=== PATIENT | female | born 1970 | race Caucasian/White ===

== ENCOUNTER 2022-05-03 07:53 | Emergency (ER) | payer MEDICAID ==
[2022-05-03] MEDS ORDERED: SODIUM CHLORIDE 0.9% 1,000 ML IV STA (08:09)
[2022-05-03] MEDS ORDERED: KETOROLAC 15 MG/ML 1 ML VIAL IVP STA (08:09)
--- NOTE | 2022-05-03 08:19 | ED ---
Female Urogenital HPI - General Chief complaint: Vaginal Bleeding Stated complaint: FEMALE ISSUES - PAIN Time Seen by Provider: 05/03/22 07:59 Source: patient, family, RN notes reviewed Mode of arrival: ambulatory Limitations: no limitations - History of Present Illness Initial comments: This is a 52-year-old female who presents to the emergency department for vaginal bleeding. She states that she has been having intermittent abdominal cramping for about a week, and starting 2 days ago, she started to have vaginal bleeding. This started light and has increased in frequency and intensity. States that she is now passing small clots. The cramping has now increased as well. Going through 3-4 pads a day. States that the pain is in the right lower quadrant with radiation into the back. The pain is making her nauseous, however she has not thrown up. She is unable to sleep at night due to the pain and states that she cannot get comfortable. Denies any history of similar symptoms in the past. Unsure if she is postmenopausal. States that she believes that she has gone a year without a period, however she feels like she has now been having a period every month. Denies any problems with painful periods in the past. She just moved to the area about a year ago and does not currently have an [facility]ESS OPERATOR. She is also unable to get in with her primary care provider until next month. Denies any fevers, chills, sore throat, cough, dyspnea, chest pain, palpitations, vomiting, diarrhea, back pain, or headaches. MD Complaint: vaginal bleeding, pelvic pain Onset/Timin -: days(s) Patient : No - Related Data Previous Rx's Medication Instructions Recorded HYDROcodone/APAP 5-325MG [Lakewood 1 tab PO Q6HR PRN 3 Days #12 tab 05/03/22 5-325] Ondansetron Odt [Zofran Odt] 4 mg PO Q8HR PRN #15 tab 05/03/22 Allergies Allergy/AdvReac Type Severity Reaction Status Date / Time No Known Allergies Allergy Verified 05/03/22 07:58 Review of Systems ROS Statement: Those systems with pertinent positive or pertinent negative responses have been documented in the HPI. ROS Other: All systems not noted in ROS Statement are negative. Past Medical History Past Medical History: No Reported History History of Any Multi-Drug Resistant Organisms: None Reported Past Surgical History: No Surgical Hx Reported Past Psychological History: No Psychological Hx Reported Smoking Status: Never smoker Past Alcohol Use History: Occasional Past Drug Use History: None Reported General Exam Limitations: no limitations General appearance: alert, in distress Head exam: Present: atraumatic, normocephalic, normal inspection Respiratory exam: Present: normal lung sounds bilaterally. Absent: respiratory distress, wheezes, rales, rhonchi, stridor Cardiovascular Exam: Present: regular rate, normal rhythm, normal heart sounds. Absent: systolic murmur, diastolic murmur, rubs, gallop, clicks GI/Abdominal exam: Present: soft, tenderness (RLQ), normal bowel sounds. Absent: distended Neurological exam: Present: alert, oriented X3, CN II-XII intact Psychiatric exam: Present: normal affect, normal mood Skin exam: Present: warm, dry, intact, normal color. Absent: rash Course Vital Signs 05/03/22 05/03/22 05/03/22 07:56 10:20 13:04 Temperature 98.5 F 98.2 F Pulse Rate 62 82 90 Respiratory 20 18 16 Rate Blood Pressure 128/61 104/80 124/82 O2 Sat by Pulse 99 98 95 Oximetry Medical Decision Making - Medical Decision Making This is a 52-year-old female who presents to the emergency department for pelvic pain and vaginal bleeding. Was pt. sent in by a medical professional or institution? @ -No Did you speak to anyone other than the patient for history? @ -No Did you review nursing and triage notes? @ -Yes, and I agree, it is accurate with regards to the patient's symptoms. Were old charts reviewed? @ -No Differential Diagnosis? @ -Differential Vaginal Bleeding: Spontaneous , threatened , molar , ectopic , incompetent cervix, placenta previa, uterine rupture, dysfunctional uterine bl eeding, hemorrhage, uterine fibroids, malignancy, coagulopathy, PID, cervicitis, adenomyosis, vaginal trauma, this is not meant to be an all- inclusive list. -Differential Abdominal Pain Women: Appendicitis, Cholecystitis, diverticulosis, ischemic bowel, pancreatitis, hepatitis, UTI, gastroenteritis, AAA, incarcerated hernia, bowel obstruction, constipation, inflammatory bowel, hepatitis, peptic ulcer disease, splenic infarction, perforated viscus, vulvitis, ovarian torsion, PID, kidney stone, placenta abruption, this is not meant to be an all-inclusive list CT interpreted by me (1pt min.)? @ -Computed tomography scan of the abdomen and pelvis obtained. My interpretation identifies no bowel wall thickening or dilation of the appendix. U/S interpreted by me (1pt. min.)? @ -Pelvic ultrasound obtained. My interpretation identifies an enlarged and bulky uterus. What testing was considered but not performed? (CT, X-rays, U/S, labs)? Why? @ -None What meds were considered but not given? Why? @ -None Did you discuss the management of the patient with other professionals? @ -Yes, case management who was able to get the patient an appointment with [facility]PERATOR on 05/[address] Napoles. Did you reconcile home meds? @ -No Was smoking cessation discussed for >3mins.? @ -No Was critical care preformed (if so, how long)? @ -No Were there social determinants of health that impacted care today? How? (Homelessness, low income, unemployed, alcoholism, drug addiction, transportation, low edu. Level, literacy, decrease access to med. care, custodial, rehab)? @ -No Was there de-escalation of care discussed even if they declined? (Discuss DNR or withdrawal of care, Hospice)? @ -No What co-morbidities impacted this encounter? (DM, HTN, Smoking, COPD, CAD, Cancer, CVA, Hep., AIDS, mental health diagnosis, sleep apnea, morbid obesity)? @ -Morbid obesity Was patient admitted / discharged? @ -Discharged. Lab work obtained revealing leukocytosis. Pelvic ultrasound obtained initially. Findings consistent with an enlarged and bulky uterus. Uterine fibroids versus other solid mass was identified. She had no improvement in pain with IV fluids, Toradol, and Zofran. She was subsequently given [place]wood. She states that this did improve the pain to some extent, and allowed her to sleep. Given the notable pain, right lower quadrant pain, and leukocytosis, we subsequently proceeded with a computed tomography scan of the abdomen and pelvis. No evidence of appendicitis or other acute process was identified. The CT scan again reidentified the enlarged and bulky uterus. Cervical mass/neoplasm could not be excluded. Given these concerning findings, I discussed the patient's case with case management. They were able to reach out to [facility]PER[facility] and get her an appointment with Dr. Napoles on 05/06. Patient made aware of this and will follow up as scheduled. Given that the pain is uncontrolled with ibuprofen and Tylenol, an we cannot get it under control here without Lakewood, prescription for 3 day course of Lakewood provided with dosing instructions reviewed. Zofran prescribed as well for any additional nausea. She is advised to take the Lakewood very sparingly when her pain is the most severe and to avoid driving or operating machinery when taking this. Undiagnosed new problem with uncertain prognosis? @ -None Drug Therapy requiring intensive monitoring for toxicity (Heparin, Nitro, Insulin, Cardizem)? @ -None Were any procedures done? @ -None Diagnosis/symptom? @ -RLQ pain, dysfunctional uterine bleeding Acute, or Chronic, or Acute on Chronic? @ -Acute Uncomplicated (without systemic symptoms) or Complicated (systemic symptoms)? @ -Uncomplicated Side effects of treatment? @ -None Exacerbation, Progression, or Severe Exacerbation] @ -Not applicable Poses a threat to life or bodily function? @ -No Return precautions reviewed in depth, the patient is instructed to return to the emergency department with any new, worsening, or concerning symptoms. Patient verbalized understanding. This case was discussed in detail with the attending ED physician, Dr. Carrera. Presentation, findings, and treatment plan discussed in detail as well. - Lab Data Result diagrams: 05/03/22 08:17 05/03/22 08:17 Lab Results 05/03/22 05/03/22 05/03/22 Range/Units 08:17 08:17 08:17 WBC 16.4 H (3.8-10.6) k/uL RBC 5.22 (3.80-5.40) m/uL Hgb 15.2 (11.4-16.0) gm/dL Hct 44.1 (34.0-46.0) % MCV 84.4 (80.0-100.0) fL MCH 29.2 (25.0-35.0) pg MCHC 34.5 (31.0-37.0) g/dL RDW 13.6 (11.5-15.5) % Plt Count 267 (150-450) k/uL MPV 8.2 Neutrophils % 84 % Lymphocytes % 9 % Monocytes % 4 % Eosinophils % 1 % Basophils % 1 % Neutrophils # 13.8 H (1.3-7.7) k/uL Lymphocytes # 1.5 (1.0-4.8) k/uL Monocytes # 0.7 (0-1.0) k/uL Eosinophils # 0.1 (0-0.7) k/uL Basophils # 0.1 (0-0.2) k/uL PT 9.5 (9.0-12.0) sec INR 0.9 (<1.2) APTT 23.6 (22.0-30.0) sec Sodium (137-145) mmol/L Potassium (3.5-5.1) mmol/L Chloride (98-107) mmol/L Carbon Dioxide (22-30) mmol/L Anion Gap mmol/L BUN (7-17) mg/dL Creatinine (0.52-1.04) mg/dL Est GFR (CKD-EPI)AfAm (>60 ml/min/1.73 sqM) Est GFR (CKD-EPI)NonAf (>60 ml/min/1.73 sqM) Glucose (74-99) mg/dL Calcium (8.4-10.2) mg/dL Total Bilirubin (0.2-1.3) mg/dL AST (14-36) U/L ALT (4-34) U/L Alkaline Phosphatase (38-126) U/L Total Protein (6.3-8.2) g/dL Albumin (3.5-5.0) g/dL Urine Color Yellow Urine Appearance Clear (Clear) Urine pH 6.5 (5.0-8.0) Ur Specific [place] 1.009 (1.001-1.035) Urine Protein Trace H (Negative) Urine Glucose (UA) Negative (Negative) Urine Ketones Negative (Negative) Urine Blood Moderate H (Negative) Urine Nitrite Negative (Negative) Urine Bilirubin Negative (Negative) Urine Urobilinogen <2.0 (<2.0) mg/dL Ur Leukocyte Esterase Trace H (Negative) Urine RBC 8 H (0-5) /hpf Urine WBC 3 (0-5) /hpf Ur Squamous Epith Cells <1 (0-4) /hpf Urine Mucus Rare H (None) /hpf Urine HCG, Qual (Not Detectd) 05/03/22 05/03/22 Range/Units 08:17 08:17 WBC (3.8-10.6) k/uL RBC (3.80-5.40) m/uL Hgb (11.4-16.0) gm/dL Hct (34.0-46.0) % MCV (80.0-100.0) fL MCH (25.0-35.0) pg MCHC (31.0-37.0) g/dL RDW (11.5-15.5) % Plt Count (150-450) k/uL MPV Neutrophils % % Lymphocytes % % Monocytes % % Eosinophils % % Basophils % % Neutrophils # (1.3-7.7) k/uL Lymphocytes # (1.0-4.8) k/uL Monocytes # (0-1.0) k/uL Eosinophils # (0-0.7) k/uL Basophils # (0-0.2) k/uL PT (9.0-12.0) sec INR (<1.2) APTT (22.0-30.0) sec Sodium 138 (137-145) mmol/L Potassium 4.1 (3.5-5.1) mmol/L Chloride 106 (98-107) mmol/L Carbon Dioxide 23 (22-30) mmol/L Anion Gap 9 mmol/L BUN 7 (7-17) mg/dL Creatinine 0.69 (0.52-1.04) mg/dL Est GFR (CKD-EPI)AfAm >90 (>60 ml/min/1.73 sqM) Est GFR (CKD-EPI)NonAf >90 (>60 ml/min/1.73 sqM) Glucose 114 H (74-99) mg/dL Calcium 9.1 (8.4-10.2) mg/dL Total Bilirubin 1.5 H (0.2-1.3) mg/dL AST 23 (14-36) U/L ALT 16 (4-34) U/L Alkaline Phosphatase 85 (38-126) U/L Total Protein 7.9 (6.3-8.2) g/dL Albumin 4.3 (3.5-5.0) g/dL Urine Color Urine Appearance (Clear) Urine pH (5.0-8.0) Ur Specific [place] (1.001-1.035) Urine Protein (Negative) Urine Glucose (UA) (Negative) Urine Ketones (Negative) Urine Blood (Negative) Urine Nitrite (Negative) Urine Bilirubin (Negative) Urine Urobilinogen (<2.0) mg/dL Ur Leukocyte Esterase (Negative) Urine RBC (0-5) /hpf Urine WBC (0-5) /hpf Ur Squamous Epith Cells (0-4) /hpf Urine Mucus (None) /hpf Urine HCG, Qual Not Detected (Not Detectd) - Radiology Data Radiology results: report reviewed, image reviewed Disposition Clinical Impression: Dysfunctional uterine bleeding, Fibroid uterus Disposition: HOME SELF-CARE Instructions (If sedation given, give patient instructions): Abnormal (Dysfunctional) Uterine Bleeding (ED) Additional Instructions: Return to the emergency department with any new, worsening, or concerning symptoms. Alternate with veuc-mik-yojjllp anti-inflammatories such as ibuprofen or Advil and Tylenol. Take the [place] sparingly when your pain is the most severe and be aware that it may make you drowsy. The Zofran can be taken up to every 8 hours as needed for nausea and vomiting. Follow-up with the [facility] PROC[facility] OPERATOR as scheduled on 05/06. Prescriptions: HYDROcodone/APAP 5-325MG [[place] 5-325] 1 tab PO Q6HR PRN 3 Days #12 tab PRN Reason: Pain Ondansetron Odt [Zofran Odt] 4 mg PO Q8HR PRN #15 tab PRN Reason: Nausea And Vomiting Is patient prescribed a controlled substance at d/c from ED?: Yes When asked, does pt state using other controlled substances?: No If prescribed controlled substance>3 days was MAPS reviewed?: Prescribed <3 Days Referrals: Juan Carlos Napoles MD [STAFF PHYSICIAN] - 05/06/22 1:00 pm (Appointment time at 1:30 but need to be present at 1:00 to complete new patient paperwork. ) Jakob Olvera DO [Primary Care Provider] - 1-2 days
[2022-05-03 08:41] LABS: INR 0.9 (<1.2); Partial Thromboplastin Time 23.6 sec (22.0-30.0); Prothrombin Time 9.5 sec (9.0-12.0)
[2022-05-03 08:42] LABS: Appearance,Urine Clear (Clear); Bilirubin,Urine Negative (Negative); Blood,Urine Moderate (Negative); Color,Urine Yellow; Glucose,Urine (UA) Negative (Negative); Ketones,Urine Negative (Negative); Leukocyte Esterase,Urine Trace (Negative); Mucus,Urine Rare /hpf; Nitrite,Urine Negative (Negative); PH, Urine 6.5 (5.0-8.0); Protein,Urine Trace (Negative); RBC,Urine 8 /hpf (0-5); Specific Gravity,Urine 1.009 (1.001-1.035); Squamous Epithelial Cell,Urine <1 /hpf (0-4); Urobilinogen,Urine <2.0 mg/dL (<2.0); WBC,Urine 3 /hpf (0-5)
[2022-05-03 08:51] LABS: Basophils # (A) 0.1 k/uL (0-0.2); Basophils % (A) 1 %; Eosinophils # (A) 0.1 k/uL (0-0.7); Eosinophils % (A) 1 %; HCT 44.1 % (34.0-46.0); HGB 15.2 gm/dL (11.4-16.0); Lymphocytes # (A) 1.5 k/uL (1.0-4.8); Lymphocytes % (A) 9 %; MCH 29.2 pg (25.0-35.0); MCHC 34.5 g/dL (31.0-37.0); MCV 84.4 fL (80.0-100.0); Mean Platelet Volume 8.2; Monocytes # (A) 0.7 k/uL (0-1.0); Monocytes % (A) 4 %; Neutrophils # (A) 13.8 k/uL (1.3-7.7); Neutrophils % (A) 84 %; Platelet Count 267 k/uL (150-450); RBC 5.22 m/uL (3.80-5.40); RDW 13.6 % (11.5-15.5); WBC 16.4 k/uL (3.8-10.6)
[2022-05-03 08:57] LABS: ALT 16 U/L (4-34); AST 23 U/L (14-36); African American GFR (CKD) >90 (>60 ml/min/1.73 sqM); Albumin 4.3 g/dL (3.5-5.0); Alkaline Phosphatase 85 U/L (38-126); Anion Gap 9 mmol/L; Blood Urea Nitrogen 7 mg/dL (7-17); Calcium 9.1 mg/dL (8.4-10.2); Carbon Dioxide 23 mmol/L (22-30); Chloride 106 mmol/L (98-107); Glucose 114 mg/dL (74-99); Non-African American GFR(CKD) >90 (>60 ml/min/1.73 sqM); Potassium 4.1 mmol/L (3.5-5.1); Sodium 138 mmol/L (137-145); Total Bilirubin 1.5 mg/dL (0.2-1.3); Total Protein 7.9 g/dL (6.3-8.2)
--- NOTE | 2022-05-03 09:42 | US ---
EXAMINATION TYPE: US pelvis complete transvag DATE OF EXAM: 05/03/2022 COMPARISON: NONE CLINICAL HISTORY: Vaginal bleeding and pelvic pain. Vaginal bleeding and pelvic pain. Hx of irregular periods. Patient thinks she has had fibroids in the past. . TECHNIQUE: Transvaginal (TV) and Transabdominal (TA) Transvaginal exam performed per order. Additional TA images were then attempted due to limited visibi lity. Exam is limited due to body habitus and bladder not fully distended for TA exam*. Date of LMP: 05/03/2022 EXAM MEASUREMENTS: Uterus: 14.9 x 8.7 x 8.0 cm Endometrial Stripe: Obscured Right Ovary: Obscured Left Ovary: Obscured 1. Uterus: Anteverted. *Appears enlarged. Very limited. Appears very heterogeneous with probable fi broids throughout. Largest hypoechoic area seen lower right uterus measures: 5.2 x 3.0 x 3.7 cm. Septated cystic area in cervix seen: 0.9 x 0.8 x 1.0 cm. Additional anechoic areas seen in cervix. 2. Endometrium: Obscured 3. Right Ovary: Obscured 4. Left Ovary: Obscured 5. Bilateral Adnexa: Appear wnl, slightly limited 6. Posterior cul-de-sac: Appears wnl Heterogeneous enlarged uterus with tiny nabothian cysts in the cervix. Due to marked heterogeneity ac curate measurement is difficult but likely multiple solid masses or fibroids are present. No free flu id. Neither ovary clearly seen. IMPRESSION: Heterogeneous bulky fibroid type uterus. Endometrial stripe not distinctly visualized to accurately assess. Follow-up advised.
[2022-05-03] MEDS ORDERED: HYDROcodone/APAP 5-325MG 1 EACH TAB PO STA (10:14)
--- NOTE | 2022-05-03 12:21 | CT ---
EXAMINATION TYPE: CT abdomen pelvis w con DATE OF EXAM: 05/03/2022 HISTORY: Right lower quadrant pain CT DLP: 1756.6mGycm Automated Exposure Control for Dose Reduction was Utilized. CONTRAST: CT scan of the abdomen and pelvis is performed without oral and with IV Contrast, patient injected wi th 100 mL of Isovue 370. COMPARISON: None. FINDINGS: LUNG BASES: There is moderate right greater than left biatrial dilatation and mild cardiomegaly. Ther e is mild left basilar linear scarring and/or atelectasis LIVER/GB: No significant abnormality is appreciated. PANCREAS: No significant abnormality is seen. SPLEEN: No significant abnormality is seen. ADRENALS: No significant abnormality is seen. KIDNEYS: Symmetric cortical medullary uptake and excretion without hydronephrosis seen bilaterally. BOWEL: Slightly suboptimal evaluation of bowel without enteric contrast. Terminal ileum appears withi n normal limits axial image 64. Appendix is normal in size from base of cecum posteriorly coronal sherin ges [address] evidence for acute appendicitis.. UTERUS/ADNEXA: Heterogeneous anteverted uterus. Abnormal prominence of the central hypodense area. Pr ominence of the lower uterine segment or cervix is noted. Ovaries are symmetric and normal in size on the left axial image 69 and on the right axial image 62. LYMPH NODES: No greater than 1cm abdominal or pelvic lymph nodes are appreciated. OSSEOUS STRUCTURES: No significant abnormality is seen. OTHER: No significant additional abnormality is seen. IMPRESSION: 1. No CT evidence for acute appendicitis. No bowel obstruction. 2. Prominent heterogeneous lobulated uterus with focal prominence in the lower uterine segment or cer vix. Abnormal prominence of the central hypodense portion of the uterus. Consider fibroid uterus vers us cervical mass/neoplasm. Consider abnormal endometrial thickening versus fluid trapped in canal. Co rrelate clinically. Advise pelvic ultrasound follow-up to further evaluate.
[2022-05-03 13:04] VITALS: BP 124/82; PULSE 90; RESP 16; TEMP 98.2
== END 2022-05-03 13:10 | disposition home or self-care (01) ==
LOC: EC 07:53
DX: D25.9 Leiomyoma of uterus, unspecified (principal); N93.8 Other specified abnormal uterine and vaginal bleeding
CPT/HCPCS: 36415; 80053; 85025; 85610; 85730; 81001; 81025; 76856; 76830; 74177; 99284; 96374; 96361; J1885; Q9967

== ENCOUNTER → 2022-05-21 | Outpatient (CLI) | payer MEDICAID ==
[2022-05-21 20:40] LABS: Estradiol 17.5 pg/mL; Follicle Stimulating Hormone 3.7 mIU/mL; T4, Free (Free Thyroxine) 1.08 ng/dL (0.800-1.800)
== END | disposition home or self-care (01) ==
LOC: LABWHC1 13:10
PROVIDERS: ATTEND Obstetrics & Gynecology
DX: E03.9 Hypothyroidism, unspecified (principal); E04.2 Nontoxic multinodular goiter; N93.8 Other specified abnormal uterine and vaginal bleeding
CPT/HCPCS: 36415; 82670; 83001; 84439; 84443; 84481

== ENCOUNTER 2022-06-24 07:29 | Day surgery (SDC) | payer MEDICAID ==
[~2022-06-24 07:29] MED LIST: LACTATED RINGERS 1,000 ML IV SCH
[2022-06-24 08:11] VITALS: TEMP 97.8
[2022-06-24] MEDS ORDERED: LACTATED RINGERS 1,000 ML IV ONE (08:31)
[2022-06-24] MEDS ORDERED: BENZOCAINE SPRAY 1 CAN TOPICAL ONE (08:50)
[2022-06-24 09:04] LABS: African American GFR (CKD) >90 (>60 ml/min/1.73 sqM); Anion Gap 7 mmol/L; Blood Urea Nitrogen 12 mg/dL (7-17); Calcium 8.2 mg/dL (8.4-10.2); Carbon Dioxide 25 mmol/L (22-30); Chloride 106 mmol/L (98-107); Glucose 92 mg/dL (74-99); Non-African American GFR(CKD) >90 (>60 ml/min/1.73 sqM); Sodium 138 mmol/L (137-145)
[2022-06-24] MEDS ORDERED: LIDOCAINE 2% INJ 20 MG/ML (2 ML VIAL) ONE (09:31)
[2022-06-24] MEDS ORDERED: PROPOFOL 10 MG/ML 20 ML VIAL IV ONE (09:31)
[2022-06-24 10:26] VITALS: RESP 18
[2022-06-24 10:40] VITALS: PULSE 52
[2022-06-24 11:28] VITALS: BP 113/68
--- NOTE | 2022-06-24 22:00 | P.TEE ---
Description of Procedure(s): Procedure performed: Transesophageal Echocardiogram with color flow doppler, pulsed wave doppler and continuous wave doppler, synchronized cardioversion Moderate conscious sedation: Moderate conscious sedation was supplied by anesthesia, see separate report. Complications: none Indications: Symptomatic A. fib PROCEDURE: After the risks, benefits and alternatives of the above mentioned procedure was explained in detail with the patient, informed consent was obtained. Patient was brought to the lab in a fasting state. Patient was given IV Versed and Fentanyl for sedation. The throat was sprayed with Hurricane to anesthetize the throat. A lubricated Omni probe was then introduced into the esophagus and stomach and multiple views were obtained. 2D echo with color flow doppler, pulsed wave doppler and continuous wave doppler was utilized. Agitated saline bubbles were injected to assess for any intra-atrial shunt. The probe was then removed. There was no thrombus noted and therefore patient underwent synchronized cardioversion x 1 with 200J with resultant sinus rhythm. Patient tolerated the procedure well. Patient was transferred to the post procedure area in stable and satisfactory condition. FINDINGS: 1. The aortic valve is tricuspid and functioning normally with mild aortic insufficiency. 2. The mitral valve appears be normal with moderate to severe mitral regurgitation. There is systolic flow reversal in the left upper pulmonary vein or consistent with severe mitral regurgitation however PISA radius of 0.7cm at Nyquist of 40. 3. Tricuspid valve has moderate to severe tricuspid regurgitation. 4. There is a large PFO with dddd-gx-oebou shunt by color flow however no bubbles seen to cross, felt likely related to high left-sided pressures. 5. Left atrial appendage is free of clot. 6. Left ventricular ejection fraction is 35% with global hypokinesis. 7. Moderately dilated left and right atrium
== END 2022-06-24 11:29 | disposition home or self-care (01) ==
LOC: OR 07:29
PROVIDERS: ATTEND Internal Medicine
DX: I08.3 Combined rheumatic disorders of mitral, aortic and tricuspid valves (principal); I25.3 Aneurysm of heart; I48.91 Unspecified atrial fibrillation
CPT/HCPCS: 93312; 93320; 93325; 81025; 92960; 80048; J2704; J2001

== ENCOUNTER → 2022-08-23 | Outpatient (CLI) | payer MEDICAID ==
--- NOTE | 2022-08-24 19:48 | MM ---
Reason for Exam: Screening (asymptomatic). Last mammogram was performed 4 year(s) and 11 month(s) ago. Patient History: Menarche at age 13. First Full-Term at age 21. Mother had breast cancer at or over age 50. Risk Values: Nadya 5 year model risk: 1.9%. NCI Lifetime model risk: 14.4%. Prior Study Comparison: 04/22/2009 Bilateral Screening Mammogram, [facility]. 07/02/2011 Bilateral Screening Mammogram, [facility]. 09/07/2017 Bilateral Screening Mammogram, [facility]. 10/04/2017 Left Diagnostic Mammogram, [facility]. Tissue Density: The breast tissue is heterogeneously dense. This may lower the sensitivity of mammography. Findings: Analyzed By CAD. Areas of asymmetric density remain unchanged when compared against there is prior studies. There is no suspicious group of microcalcifications or new suspicious mass in either breast. Overall Assessment: Benign, BI-RAD 2 Management: Screening Mammogram of both breasts in 1 year. . Patient should continue monthly self-breast exams. A clinical breast exam by your physician is recommended on an annual basis. This exam should not preclude additional follow-up of suspicious palpable abnormalities. Note on Nadya scores and lifetime risk: 1. A Nadya score greater than 3% is considered moderate risk. If this is the case, consider specialist referral to assess eligibility for a risk reducing agent. 2. If overall lifetime risk for the development of breast cancer is 20% or higher, the patient may qualify for future screening with alternating mammogram and breast MRI. Electronically signed and approved by: Gloria Patino M.D. Radiologist
== END | disposition home or self-care (01) ==
LOC: RADMAMWWP 16:35
PROVIDERS: ATTEND Family Medicine
DX: Z12.31 Encounter for screening mammogram for malignant neoplasm of breast (principal); Z80.3 Family history of malignant neoplasm of breast
CPT/HCPCS: 77067

== ENCOUNTER → 2022-09-23 | Outpatient (CLI) | payer MEDICAID ==
[2022-09-23 20:12] LABS: Blood Urea Nitrogen 10.2 mg/dL (9.0-27.0); Carbon Dioxide 25.8 mmol/L (21.6-31.8); Chloride 104 mmol/L (96-109); Potassium 5.1 mmol/L (3.5-5.5); Sodium 140 mmol/L (135-145)
[2022-09-23 21:18] LABS: HCT 45.1 % (37.2-46.3); HGB 14.6 d/dL (12.0-15.0); MCH 28.9 pg (27.0-32.0); MCHC 32.4 d/dL (32.0-37.0); MCV 89.1 FL (80.0-97.0); Mean Platelet Volume 10.6 FL (9.5-12.2); NRBC Per 100 WBC 0 X 10*3/uL (0.00-0.01); Platelet Count 271 X 10*3/uL (140-440); RBC 5.06 X 10*6/uL (4.10-5.20); WBC 8.66 X 10*3/uL (4.50-10.00)
== END | disposition home or self-care (01) ==
LOC: LABPAT 15:39
PROVIDERS: ATTEND Internal Medicine
DX: Z01.812 Encounter for preprocedural laboratory examination (principal); I48.0 Paroxysmal atrial fibrillation; R94.39 Abnormal result of other cardiovascular function study
CPT/HCPCS: 80051; 82565; 84520; 85027

== ENCOUNTER → 2022-12-17 | Outpatient (CLI) | payer MEDICAID ==
[2022-12-17 19:26] LABS: HCT 44.1 % (37.2-46.3); HGB 14.3 d/dL (12.0-15.0); MCH 28.8 pg (27.0-32.0); MCHC 32.4 d/dL (32.0-37.0); MCV 88.9 FL (80.0-97.0); Mean Platelet Volume 10.3 FL (9.5-12.2); NRBC Per 100 WBC 0 X 10*3/uL (0.00-0.01); Platelet Count 246 X 10*3/uL (140-440); RBC 4.96 X 10*6/uL (4.10-5.20); RDW 13.2 % (11.5-14.5)
[2022-12-17 21:36] LABS: Carbon Dioxide 27.4 mmol/L (21.6-31.8); Chloride 104 mmol/L (96-109); Potassium 5.3 mmol/L (3.5-5.5); Sodium 141 mmol/L (135-145)
== END | disposition home or self-care (01) ==
LOC: LABPAT 13:54
PROVIDERS: ATTEND Internal Medicine Clinical Cardiac Electrophysiology
DX: Z01.812 Encounter for preprocedural laboratory examination (principal); I48.19 Other persistent atrial fibrillation; I42.9 Cardiomyopathy, unspecified
CPT/HCPCS: 80051; 82565; 84520; 85027

== ENCOUNTER 2022-12-23 05:44 | Day surgery (SDC) | payer MEDICAID ==
[2022-12-20 12:30] VITALS: BMI 36.5
[2022-12-23] MEDS ORDERED: SODIUM CHLORIDE 0.9% 1,000 ML IV SCH (05:52)
[2022-12-23] MEDS ORDERED: LACTATED RINGERS 1,000 ML IV SCH (05:52)
[2022-12-23 07:09] LABS: ALT 14 U/L (4-34); AST 21 U/L (14-36); African American GFR (CKD) >90 (>60 ml/min/1.73 sqM); Albumin 4.2 g/dL (3.5-5.0); Alkaline Phosphatase 71 U/L (38-126); Anion Gap 11 mmol/L; Blood Urea Nitrogen 16 mg/dL (7-17); Calcium 9.2 mg/dL (8.4-10.2); Carbon Dioxide 22 mmol/L (22-30); Chloride 107 mmol/L (98-107); Glucose 108 mg/dL (74-99); Non-African American GFR(CKD) 88 (>60 ml/min/1.73 sqM); Sodium 140 mmol/L (137-145); Total Protein 7.5 g/dL (6.3-8.2)
[2022-12-23] MEDS ORDERED: SUCCINYLCHOLINE CHLORIDE 200 MG/10 ML VIAL IV ONE (07:41)
[2022-12-23] MEDS ORDERED: fentaNYL (PF) 50 MCG/ML 2 ML AMP ONE (07:41)
[2022-12-23] MEDS ORDERED: PROPOFOL 10 MG/ML 20 ML VIAL IV ONE (07:41)
[2022-12-23] MEDS ORDERED: LIDOCAINE 1% INJ 10MG/ML (20 ML MDV) ONE ×2 (07:41→08:07)
[2022-12-23] MEDS ORDERED: MIDAZOLAM 2 MG/2 ML VIAL ONE (07:41)
[2022-12-23] MEDS ORDERED: FUROSEMIDE 10 MG/ML 2 ML VIAL ONE (07:41)
[2022-12-23] MEDS ORDERED: HEPARIN SODIUM,PORCINE 10,000 UNIT/ML 1 ML VIAL ONE (07:41)
--- NOTE | 2022-12-23 07:45 | P.HPCAR ---
History of Present Illness This is Dr. Mckeon dictating an H/P on this patient The patient was interviewed and examined IMPRESSION / ASSESSMENT: Persistent atrial fibrillation treatment with amiodarone followed by electrical cardioversion Severe cardio myopathy, nonischemic in nature Moderate to severe mitral regurgitation Moderate to severe tricuspid regurgitation Normal coronary arteries PLAN: Ablation for persistent atrial fibrillation Her TSH was normal earlier this year She was treated with amiodarone and a TSH is 17.8 We'll repeat this again and of abnormal then will start levothyroxine Maximization of heart failure medications HPI Patient remains in atrial fibrillation and she may short of breath with exertion with tiredness and fatigue Denies any fever chills cough expectoration Denies any orthopnea PND Able to lie comfortably in bed ROS: No fever chills or rigors, no cough, phlegm or expectoration, no nausea, vomiting or diarrhea, no hematuria, dysuria, no musculoskeletal complaints, no strokes or seizures, no skin lesions. EXAMINATION: Afebrile 98.2F, pulse rate in the 70s Blood pressure 142/92 mmHg Breath sounds are clear, no rhonchi no crackles S1 and S2 irregular Systolic murmur Mild hepatojugular reflux REVIEW OF LABS, ECG & MEDICAL DATA sodium 140, potassium 4.0 BUN 60, creatinine 0.8 Normal liver function TSH 17.8 Metoprolol succinate 12.5 mg by mouth daily, ELIQUIS 5 mg twice daily Physical Exam Vitals: Vital Signs Temp Pulse Resp BP Pulse Ox 12/23/22 06:45 98.2 F 71 16 142/92 99 Intake and Output 12/22/22 12/23/22 12/23/22 22:59 06:59 14:59 Other: Weight 111.6 kg Past Medical History Past Medical History: Atrial Fibrillation, GERD/Reflux Additional Past Medical History / Comment(s): hx hypothyroid for 20 yrs but now resolved per pt ( per blood work) History of Any Multi-Drug Resistant Organisms: None Reported Past Surgical History: Heart Catheterization Additional Past Surgical History / Comment(s): INJECTIONS IN BACK. SHASHI/CARDIOV ERSION 09/29/22 Past Anesthesia/Blood Transfusion Reactions: No Reported Reaction Smoking Status: Never smoker - Past Family History Mother Family Medical History: Cancer, Congestive Heart Failure (CHF), Dementia, Deep Vein Thrombosis (DVT) Additional Family Medical History / Comment(s): breast cancer, ?POTS Physical Examination Vital Signs Temp Pulse Resp BP Pulse Ox 12/23/22 06:45 98.2 F 71 16 142/92 99 Intake and Output 12/22/22 12/23/22 12/23/22 22:59 06:59 14:59 Other: Weight 111.6 kg Results 12/23/22 06:17 Cardiac Enzymes 12/23/22 Range/Units 06:17 AST 21 (14-36) U/L Comprehensive Metabolic Panel 12/23/22 Range/Units 06:17 Sodium 140 (137-145) mmol/L Potassium 4.0 (3.5-5.1) mmol/L Chloride 107 (98-107) mmol/L Carbon Dioxide 22 (22-30) mmol/L BUN 16 (7-17) mg/dL Creatinine 0.77 (0.52-1.04) mg/dL Glucose 108 H (74-99) mg/dL Calcium 9.2 (8.4-10.2) mg/dL AST 21 (14-36) U/L ALT 14 (4-34) U/L Alkaline Phosphatase 71 (38-126) U/L Total Protein 7.5 (6.3-8.2) g/dL Albumin 4.2 (3.5-5.0) g/dL Current Medications Generic Name Dose Route Start Last Admin Trade Name Williamq PRN Reason Stop Dose Admin Apixaban 5 mg 12/23/22 09:00 Apixaban 2.5 Mg Tablet PO 01/22/23 09:01 BID ELADIO Protocol Sodium Chloride 1,000 mls @ 50 mls/hr 12/23/22 05:52 12/23/22 06:20 Saline 0.9% IV 01/22/23 05:53 0 mls .Q20H ELADIO Administration Metoprolol Succinate 12.5 mg 12/23/22 09:00 Metoprolol Succinate (Er) 25 Mg Tab.Er.24h PO 01/22/23 09:01 DAILY ELADIO Intake and Output 12/22/22 12/23/22 12/23/22 22:59 06:59 14:59 Other: Weight 111.6 kg 12/23/22 06:17
[2022-12-23] MEDS ORDERED: HEPARIN SOD,PORK IN 0.45% NACL 25,000 UNIT in 0.45% NACL 1 250ML.BAG IV ONE (07:53)
[2022-12-23 08:25] LABS: T4, Free (Free Thyroxine) 1.14 ng/dL (0.78-2.19)
[2022-12-23] MEDS ORDERED: LIDOCAINE 1% INJ 10MG/ML (20 ML MDV) SQ ONE (08:28)
[2022-12-23] MEDS ORDERED: METOPROLOL SUCCINATE (ER) 25 MG TAB.ER.24H PO SCH (09:00)
[2022-12-23] MEDS ORDERED: IOPAMIDOL-370 100ML BTL INJ ONE (10:12)
--- NOTE | 2022-12-23 10:44 | P.PRLE ---
RE: Radha Rincon Dear Noelle Cama Sergey underwent in A. fib ablation for severe cardio myopathy In May her TSH was normal Today her TSH is elevated at 17.8 She stopped taking her Synthroid and according to her family is also noncompliant with her medications I'm restarting her on Synthroid 25 g by mouth daily and she'll follow up with you in the next month or so Hopefully she will take ELIQUIS and a cardiac medications on a regular basis Thank you for entrusting me with the care of the patient Warm regards Sincerely Gregorio Mckeon
[2022-12-23] MEDS ORDERED: ACETAMINOPHEN IV (For NPO) 1,000 MG in EMPTY BAG 1 BAG IVPB ONE (10:46)
[2022-12-23] MEDS ORDERED: ACETAMINOPHEN TAB 325 MG TAB PO PRN (10:46)
--- NOTE | 2022-12-23 11:06 | P.EPPROC ---
- EP Procedure Note Electrophysiology Procedure Note: PROCEDURE A. fib ablation DIAGNOSIS Atrial fibrillation, symptomatic, refractory to therapy RESULT No left atrial appendage mass seen on intracardiac echo Mild pericardial thickening, reduced LV systolic function on intracardiac echo Successful A. fib ablation/pulmonary vein isolation of all veins using cryo- ablation Complete entrance block in all 4 veins confirmed Linear ablation left atrial roof, sequential cryoablation lesions Linear ablation lower posterior wall of the left atrium, sequential cryoablation No evidence for phrenic nerve injury Esophageal deflection YES Electrical cardioversion with a synchronized shock across the chest YES PROCEDURE DETAILS Written informed consent prior to procedure. Patient brought to the EP lab. General anesthesia given. Heparin administered. A city maintained above 300 seconds Both groins prepped and draped per protocol and venous sheaths placed. Esophagus intubated, circa catheter for temperature monitoring an endoscope for possible esophageal deflection. Phrenic nerve monitoring performed. Esophageal temperature monitoring performed. Esophageal deflection performed if circa catheter overlapping with the balloon or circa temperature less than 27.5C Intracardiac echocardiography performed. Pericardium evaluated. Left atrial appendage evaluated. Left atrium evaluated along with pulmonary veins Transseptal catheterization performed under fluoroscopic guidance and intracardiac echo guidance Cryoablation sheath exchanged, balloon catheter along with achieve catheter placed in the left atrium. Pulmonary veins isolated in the following sequence: Left superior pulmonary vein followed by left inferior pulmonary vein, followed by right inferior pulmonary vein and lastly right superior pulmonary vein. Phrenic nerve stimulation along with capture thresholds within the SVC and right superior pulmonary vein to identify the phrenic nerve proximity to the cryo- balloon. Pulmonary veins isolated and confirmed with entrance and exit block. Phrenic nerve integrity confirmed at the end of the procedure Ablation of the left atrial roof performed with sequential lesions from the left superior to the right superior pulmonary veins. Ablation of the electrograms confirmed Linear ablation along the posterior wall of the LAD between the left inferior and the right inferior pulmonary veins with excellent contact and ablation of electrograms Electrical cardioversion performed for persistence of atrial fibrillation despite successful ablation. Diagnostic catheters for the high right atrium, His bundle, coronary sinus placed. LA and RA pressures recorded RA pressure: 14/10/12 LA pressure: 23//16 Diagnostic EP study with coronary sinus pacing and recording post electrical cardioversion Baseline measurements: Sinus cycle 948 ms, VT interval 138 ms, QRS 101 ms, QT 359 ms AH 71 ms and HV interval 60 ms Venous sheaths were removed and hemostasis assured with a closure device. Patient extubated and transferred to recovery PROCEDURES PERFORMED Diagnostic EP study CS pacing and recording Left and right transseptal catheterization Catheter the mapping of the tachycardia Intracardiac echocardiography Pulmonary vein isolation with transseptal and comprehensive EPS, [id number] Left atrial roof line, +[id number] Linear ablation, left atrium, +[id number] Electrical cardioversion with a synchronized shock across the chest [id number]
[2022-12-23 11:40] LABS: T4, Free (Free Thyroxine) 1.15 ng/dL (0.78-2.19)
[2022-12-23] MEDS: APIXABAN 5 MG TAB PO SCH ×2 (12:38→21:17)
[2022-12-23] MEDS: LEVOTHYROXINE 25 MCG TAB PO SCH (12:58)
[2022-12-23] MEDS: carvediloL 3.125 MG TAB PO SCH (17:24)
[2022-12-24 03:24] VITALS: PULSE 63; RESP 15
[2022-12-24] MEDS: carvediloL 3.125 MG TAB PO SCH (06:16)
[2022-12-24] MEDS: LEVOTHYROXINE 25 MCG TAB PO SCH (06:16)
--- NOTE | 2022-12-24 08:12 | P.PRLE ---
RE: Radha Rincon Dear Noelle This is a follow-up letter on Radha Rincon Yesterday she underwent an A. fib ablation and I checked a TSH level preoperatively The TSH level was 17.8 which was unusual since in May it was completely normal However she has been amiodarone 4 short duration Therefore this morning I repeated her TSH level once again and it is 5.5 Therefore be getting past the different TSH levels and therefore would hold off on treating her with Synthroid at this time I was asked to see you again in the next few weeks and perhaps a repeat TSH level at a different lab would help sort out this issue However she does have a cardio myopathy and I have emphasized the following active #1 gradual weight reduction #2 Assessment for sleep apnea #3 Continue with cardiac medications. I have switched her to carvedilol and have added spironolactone and lisinopril #5 continue ELIQUIS uninterrupted #4 reassess TSH level and then monitor on a 6 monthly basis She will follow with you and Dr. Amin on a regular basis Thank you for entrusting me with the care of the patient Warm regards Sincerely Gregorio Mckeon
--- NOTE | 2022-12-24 08:15 | P.DS ---
Providers Attending physician: Gregorio Mckeon Primary care physician: [facility] Course: Discharge summary Patient is resting comfortably in bed Mild pleuritic chest discomfort No dizziness or lightheadedness Heart sounds are normal No rub Lungs clear Vitals are stable Impression Persistent atrial fibrillation Nonischemic cardio myopathy with normal coronary arteries Moderate MR and moderate TR Mean RA pressure 12 mmHg Mean LA pressure 16 mmHg Archana prolonged HV interval of 60 ms Intracardiac echo revealed thickening of the pericardium consistent with chronic pericarditis History of long-standing hypothyroidism, patient stopped taking her thyroid medications In May her TSH was normal, today her TSH is 17.8. Repeat lab was 5.5 History of noncompliance per multiple family members Plan ELIQUIS 5 mg twice daily Stop metoprolol Start carvedilol 3.125 mg twice daily Lisinopril 2.5 g by mouth daily Spironolactone 25 mg by mouth daily Recheck TSH in 6 weeks, follow-up with physician Dr. Olvera Compliance with medications for thyroid function, anticoagulation and for heart failure emphasized Complete abstinence from alcohol use Plan - Discharge Summary Discharge Rx Participant: No New Discharge Prescriptions: New RX: carvediloL [Coreg] 3.125 mg PO BID #180 tablet RX: lisinopriL 2.5 mg PO DAILY #90 tablet RX: Spironolactone 25 mg PO DAILY #90 tablet Discontinued Metoprolol Succinate (ER) [Toprol Xl] 12.5 mg PO DAILY No Action Apixaban [Eliquis] 5 mg PO BID Discharge Medication List Apixaban [Eliquis] 5 mg PO BID 06/22/22 [History] RX: Spironolactone 25 mg PO DAILY #90 tablet 12/23/22 [Rx] RX: carvediloL [Coreg] 3.125 mg PO BID #180 tablet 12/23/22 [Rx] RX: lisinopriL 2.5 mg PO DAILY #90 tablet 12/23/22 [Rx] Follow up Appointment(s)/Referral(s): Saw Amin DO [STAFF PHYSICIAN] - 1 Week Activity/Diet/Wound Care/Special Instructions: Post EP study - Ablation instructions 1. Keep access sites dry for 2 days. 2. No heavy lifting or straining for 2 days. 3. Avoid bending the hips repeatedly for 2 days. 4. You may go up and down stairs slowly Call if the following is noted 1. Bleeding, increasing swelling or pain at the access sites. 2. Increasing chest discomfort, especially upon taking a deep breath. 3. Increasing shortness of breath, at rest or with exertion. 4. Undue cough / phlegm 5. Difficulty or pain while swallowing. 6. Pain or change in color in the extremities. 7. Fever, chills, rigors. 8. Increasing headache or neurologic symptoms. 9. Dizziness, fainting, palpitations Continue ELIQUIS 5 mg twice daily Switched to carvedilol 3.125 mg twice daily Spironolactone 25 mg by mouth daily Lisinopril 5 mg by mouth daily in the evening Hold off on thyroid replacement therapy Follow-up with Dr. Olvera within 4 weeks for fluctuating TSH level management Discharge Disposition: HOME SELF-CARE
[2022-12-24] MEDS ORDERED: SPIRONOLACTONE 25 MG TAB PO SCH (09:00)
[2022-12-24] MEDS: APIXABAN 5 MG TAB PO SCH (09:09)
[2022-12-24 11:16] VITALS: BP 118/71; TEMP 98.2
== END 2022-12-24 10:37 | disposition home or self-care (01) ==
LOC: CATHEP 05:44 → 6NMEDSUR 10:18 → CATHEP 12-24 10:37
PROVIDERS: ATTEND Internal Medicine Clinical Cardiac Electrophysiology
DX: I08.1 Rheumatic disorders of both mitral and tricuspid valves (principal); I48.19 Other persistent atrial fibrillation; I50.9 Heart failure, unspecified; E03.9 Hypothyroidism, unspecified; K21.9 Gastro-esophageal reflux disease without esophagitis; Z79.01 Long term (current) use of anticoagulants; Z79.899 Other long term (current) drug therapy; Z79.890 Hormone replacement therapy; Z91.148 Patient's other noncompliance with medication regimen for other reason
CPT/HCPCS: 93656; 93657; 86900; 86901; 84439; 84481; 80053; 84443 ×2; 86850; 84703; C1894 ×2; C1769 ×4; C1760; C1730 ×2; C1759; C1893; C1733; C1766; J2250; J0330; J1644 ×2; J1940; J2001; J3010; J0131; J2704; Q9967

== ENCOUNTER → 2023-07-29 | Outpatient (CLI) | payer MEDICAID ==
[2023-07-29 09:44] LABS: Basophils # (A) 0.1 k/uL (0-0.2); Basophils % (A) 1 %; Eosinophils # (A) 0.2 k/uL (0-0.7); Eosinophils % (A) 2 %; HCT 22.6 % (34.0-46.0); Hypochromasia Moderate; Lymphocytes # (A) 2.2 k/uL (1.0-4.8); Lymphocytes % (A) 20 %; MCH 26.2 pg (25.0-35.0); MCHC 30.9 g/dL (31.0-37.0); MCV 84.6 fL (80.0-100.0); Mean Platelet Volume 8.1; Monocytes # (A) 0.4 k/uL (0-1.0); Monocytes % (A) 4 %; Neutrophils # (A) 7.9 k/uL (1.3-7.7); Neutrophils % (A) 72 %; Platelet Count 385 k/uL (150-450); Poikilocytosis Slight; RBC 2.68 m/uL (3.80-5.40); WBC 10.9 k/uL (3.8-10.6)
[2023-07-29 10:54] LABS: T4, Free (Free Thyroxine) 1.12 ng/dL (0.78-2.19)
[2023-07-29 17:32] LABS: Ferritin 16.7 ng/mL (10.0-291.0)
== END | disposition home or self-care (01) ==
LOC: LABWHC1 09:03
PROVIDERS: ATTEND Family Medicine
DX: R73.9 Hyperglycemia, unspecified (principal); N93.9 Abnormal uterine and vaginal bleeding, unspecified
CPT/HCPCS: 36415; 82728; 83036; 84439; 84443; 85025

== ENCOUNTER → 2023-08-10 | Outpatient (CLI) | payer MEDICAID ==
[2023-08-10 18:30] LABS: Basophils # (A) 0.09 X 10*3/uL (0.00-0.10); Basophils % (A) 0.9 %; Eosinophils # (A) 0.22 X 10*3/uL (0.04-0.35); Eosinophils % (A) 2.2 %; HCT 25.6 % (37.2-46.3); HGB 7.4 g/dL (12.0-15.0); Lymphocytes # (A) 2.89 X 10*3/uL (0.90-5.00); MCH 23.9 pg (27.0-32.0); MCHC 28.9 g/dL (32.0-37.0); MCV 82.8 FL (80.0-97.0); Mean Platelet Volume 9.8 FL (9.5-12.2); Monocytes # (A) 0.56 X 10*3/uL (0.20-1.00); Monocytes % (A) 5.6 %; NRBC Per 100 WBC 0 X 10*3/uL (0.00-0.01); Neutrophils # (A) 6.13 X 10*3/uL (1.80-7.70); Neutrophils % (A) 61.7 %; Platelet Count 398 X 10*3/uL (140-440); RBC 3.09 X 10*6/uL (4.10-5.20); RDW 14.7 % (11.5-14.5); WBC 9.95 X 10*3/uL (4.50-10.00)
== END | disposition home or self-care (01) ==
LOC: LABWHC1 12:40
PROVIDERS: ATTEND Family Medicine
DX: N93.9 Abnormal uterine and vaginal bleeding, unspecified (principal)
CPT/HCPCS: 36415; 85025